=== PATIENT | female | born 1960 | race Caucasian/White ===

== ENCOUNTER 2018-04-30 18:51 | Emergency (ER) | payer OTHER ==
[~2018-04-30] VITALS: Ht 165.1 cm; Wt 65.8 kg
[2018-04-30 19:02] VITALS: BP 156/87
[2018-04-30] MEDS ORDERED: ATORVASTATIN CA40 MG PO (19:05)
[2018-04-30] MEDS ORDERED: AUGMENTIN 875-1 EACH PO (19:30)
[2018-05-01] MEDS ORDERED: IMOVAX RABIE2.5 UNI1 IM (16:05)
== END 2018-04-30 19:57 | disposition home or self-care (01) ==
LOC: M.ERS 18:51
DX: S71.132A Puncture wound without foreign body, left thigh, initial encounter (principal); S61.432A Puncture wound without foreign body of left hand, initial encounter; S61.431A Puncture wound without foreign body of right hand, initial encounter; Z88.8 Allergy status to other drugs, medicaments and biological substances; W54.0XXA Bitten by dog, initial encounter; Y93.89 Activity, other specified; Y92.89 Other specified places as the place of occurrence of the external cause; Y99.8 Other external cause status

== ENCOUNTER 2018-05-01 15:31 | Emergency (ER) | payer OTHER ==
[~2018-05-01] VITALS: Ht 165.1 cm; Wt 63.5 kg
[~2018-05-01 15:31] MED LIST: ATORVASTATIN CA40 MG PO; AUGMENTIN 875-1 EACH PO
[2018-05-01] MEDS ORDERED: IMOVAX RABIE2.5 UNI1 IM (16:05)
[2018-05-01 17:07] VITALS: BP 131/81
== END 2018-05-01 17:08 | disposition home or self-care (01) ==
LOC: M.ERS 15:31
DX: Z20.3 Contact with and (suspected) exposure to rabies (principal)